=== PATIENT | female | born 1985 | race Two or more races ===

== ENCOUNTER 2022-08-18 15:37 | Emergency (ER) | payer OTHER ==
[2022-08-18 15:48] VITALS: RESP 20; TEMP 99.6; BMI 22.1
[2022-08-18 17:31] LABS: EPI CELLS 12 /uL (0-25.1); HYALINE CASTS 0 /uL (0-3.1); URINE APPEARANCE CLEAR; URINE BACTERIA 53 /uL (0-1359); URINE BILIRUBIN NEGATIVE (NEGATIVE); URINE COLOR YELLOW; URINE GLUCOSE (UA) NEGATIVE (NEGATIVE); URINE KETONE NEGATIVE (NEGATIVE); URINE LEUK ESTERASE TRACE (NEGATIVE); URINE NITRITE NEGATIVE (NEGATIVE); URINE PROTEIN NEGATIVE (NEGATIVE); URINE RBC 8 /uL (0-23.9); URINE UROBILINOGEN 0.2 mg/dL (0.2-1.0); URINE WBC 8 /uL (0-25.8)
[2022-08-18 17:32] LABS: HCG,QUALITATIVE URINE Negative
[2022-08-18] MEDS ORDERED: ONDANSETRON 4 MG/2 ML VIAL IVPUSH ONE (17:35)
[2022-08-18] MEDS ORDERED: ACETAMINOPHEN 1000 MG/100 ML BAG IVPB ONE (17:35)
[2022-08-18] MEDS ORDERED: LIDOCAINE 5% TOPICAL PATCH TP ONE (17:40)
[2022-08-18] MEDS ORDERED: LIDOCAINE 5% TOPICAL PATCH ONE (17:55)
[2022-08-18] MEDS ORDERED: ACETAMINOPHEN INJECTION 100 ML IVPB ONE (17:55)
[2022-08-18] MEDS ORDERED: ONDANSETRON 4 MG/2 ML VIAL ONE (17:56)
[2022-08-18] MEDS ORDERED: SODIUM CHLORIDE 0.9% 500 ML INFUS.BAG IV ONE (17:57)
[2022-08-18 18:07] LABS: BASO % 0.4 % (0-2.0); EOS % 1.7 % (0-4.5); HEMATOCRIT 41.4 % (32.4-45.2); HEMOGLOBIN 13.5 GM/dL (10.7-15.3); LYMPH % 18.8 % (8-40); MCHC 32.7 g/dl (32.0-36.0); MEAN CELL VOLUME 85.7 fl (80-96); MEAN PLT VOLUME 9.9 fl (7.5-11.1); MONO % 5.1 % (3.8-10.2); PLATELET COUNT 233 10^3/uL (134-434); RBC 4.83 M/mm3 (3.60-5.2); RDW 13.7 % (11.6-15.6); WHITE BLOOD COUNT 6.5 K/mm3 (4.0-10.0)
[2022-08-18 18:19] LABS: INR 0.99 (0.83-1.09); PROTHROMBIN TIME (PATIENT) 11.5 SEC (9.7-13.0)
[2022-08-18 18:20] LABS: POTASSIUM 3.8 mmol/L (3.5-5.1)
[2022-08-18 18:22] LABS: ACTIVATED PTT 29.6 SECONDS (25.2-36.5); CALCIUM 9.6 mg/dL (8.5-10.1)
[2022-08-18 18:23] LABS: ALBUMIN 4.4 g/dl (3.4-5.0); BLOOD UREA NITROGEN 9.9 mg/dL (7-18)
[2022-08-18 18:26] LABS: CREATININE 0.7 mg/dL (0.55-1.3)
[2022-08-18 18:27] LABS: BILIRUBIN,TOTAL 0.3 mg/dL (0.2-1)
[2022-08-18 18:28] LABS: TOT PROT 8.4 g/dl (6.4-8.2)
[2022-08-18 18:30] LABS: MAGNESIUM 2.1 mg/dL (1.8-2.4)
[2022-08-18] MEDS ORDERED: KETOROLAC TROMETHAMINE 15 MG/ML VIAL IVPUSH ONE (18:33)
[2022-08-18 20:08] VITALS: BP 122/80; PULSE 105
[2022-08-18] MEDS ORDERED: LIDOCAINE PATCH REMOVAL MC SCH (22:00)
== END 2022-08-18 22:32 | disposition home or self-care (01) ==
LOC: JER 15:37
PROC: 3E033NZ Introduction of Analgesics, Hypnotics, Sedatives into Peripheral Vein, Percutaneous Approach (ICD-10-PCS; principal; 2022-08-18)
PROC: 3E033GC Introduction of Other Therapeutic Substance into Peripheral Vein, Percutaneous Approach (ICD-10-PCS; 2022-08-18)
DX: R42 Dizziness and giddiness (principal); R10.30 Lower abdominal pain, unspecified; M54.2 Cervicalgia; R11.0 Nausea; R30.0 Dysuria; R35.0 Frequency of micturition; R00.0 Tachycardia, unspecified; R63.8 Other symptoms and signs concerning food and fluid intake; R39.15 Urgency of urination; R06.02 Shortness of breath; Z20.822 Contact with and (suspected) exposure to COVID-19
CPT/HCPCS: 0241U-QW; 36415; 71046-TC-FY; 76830-TC; 80053; 81003; 83735; 84443; 84484; 84703; 85025; 85379; 85610; 85730; 87086; 93005; 93010; 99285-25

== ENCOUNTER 2023-11-13 17:07 | Emergency (ER) | payer OTHER ==
[2023-11-13 17:25] VITALS: BP 131/99; PULSE 89; RESP 18; TEMP 97.3; BMI 20.2
[2023-11-13] MEDS ORDERED: IBUPROFEN 400 MG TABLET (FP) PO ONE (19:43)
[2023-11-13] MEDS: IBUPROFEN 400 MG TABLET (FP) PO ONE (19:44)
== END 2023-11-13 19:48 | disposition home or self-care (01) ==
LOC: JERFT 17:07
DX: S90.122A Contusion of left lesser toe(s) without damage to nail, initial encounter (principal); W22.8XXA Striking against or struck by other objects, initial encounter
CPT/HCPCS: 73660-TC-LT-FY; 99283-25